=== PATIENT | female | born 2000 | race Caucasian/White ===

== ENCOUNTER 2021-12-15 18:12 | Emergency (ER) | payer SELFPAY ==
[~2021-12-15] VITALS: Ht 154.9 cm; Wt 52.0 kg
[2021-12-15 18:18] VITALS: BP 128/87
== END 2021-12-15 18:52 | disposition left against medical advice (07) ==
LOC: ER 18:37
DX: Z53.21 Procedure and treatment not carried out due to patient leaving prior to being seen by health care provider (principal)